=== PATIENT | female | born 1990 | race African-American/Black ===

== ENCOUNTER 2016-08-15 23:10 | Emergency (ER) | payer MEDICAID ==
[~2016-08-15 23:10] MED LIST: LORTA5 PO
[2016-08-16 00:05] LABS: BLOOD, URINE NEG (NEG); GLUCOSE,URINE NEG (NEG); KETONE, URINE NEG (NEG); MUCUS URINE FEW /lpf (OCC); NITRITE,URINE NEG (NEG); PH, URINE 6.5 (5.0-8.5); RENAL EPITHELIAL CELLS <1 /hpf; SQUAMOUS EPITHELIAL CELL URINE 4 /hpf (0-5); URINE COLOR YELLOW (YELLW/STRAW)
[2016-08-16 00:34] LABS: COMMENT (UR) CULT NOT INDICATED; CULTURE IF INDICATED CULT NOT INDICATED
--- NOTE | 2016-08-16 00:44 | PD ---
HPI Chief Complaint Complains of back pain Date Seen: Aug 16, 2016 Travel History International Travel<30 Days: No Contact w/Intl Traveler<30Days: No Known Affected Area: No History of Present Illness HPI Patient is a 26-year-old black female at 29 weeks who presents complaining of upper right back pain for 1-2 days, no bleeding or leakage of fluid or contractions noted, she sees Dr. Pérez for care. heart rate tracing is reactive and no contractions Para: 2 : 3 History Obstetric History Obstetric History 2 vaginal deliveries Social History Alcohol Use: No Tobacco Use: No Substance Abuse: No Allergies-Medications (Allergen,Severity, Reaction): Coded Allergies: No Known Allergies (Unverified , 11/14/12) Home Meds Active Scripts Hydrocodone-Acetaminophen 5-325 mg ([place] 5-325 mg)1 Tab1 Tab PO Q6H PRN (PAIN GREATER THAN 5) #20 TAB Prov:Edy Chavez MD 10/31/15 Review of Systems General / Constitutional: No: Fever, Weight Gain, Chills, Other Eyes: No: Diploplia, Blurred Vision, Visual changes, Pain, Photophobia HENT: No: Headaches, Vertigo, Lightheadedness Cardiovascular: No: Irregular Rhythm, Chest Pain or Discomfort, Palpitations, Tachycardia, Syncope, Varicosities, Edema, Cyanosis Respiratory: No: Cough, Short of Breath, Other Gastrointestinal: No: Nausea, Vomiting, Diarrhea Genitourinary: No: Decreased Urinary Output, Oliguria Musculoskeletal: No: Limited ROM, Weakness, Cramping, Edema, Pain Skin: No Rash, No Itching, No Dryness, No Lumps, No Change in Pigmentation, No Change in Nails, No Alopecia, No Lesions Neurologic: No: Weakness, Dizziness, Syncope, Focal Abnormalities, Coordination Problem, Headache, Slurred Speech, Seizures Psychiatric: No: Depression, Suicidal Ideations, Homicidal Ideation Endocrine: No: Heat Intolerance, Cold Intolerance, Polydipsia, Polyuria, Other Physical Exam Narrative GENERAL: Well-nourished, well-developed patient. SKIN: Warm and dry. HEAD: Normocephalic and atraumatic. EYES: No scleral icterus. No injection or drainage. ENT: No nasal drainage noted. Mucous membranes pink. Airway patent. NECK: Supple, trachea midline. No JVD. CARDIOVASCULAR: Regular rate and rhythm without murmurs, gallops, or rubs. RESPIRATORY: Breath sounds equal bilaterally. No accessory muscle use. BREASTS: Bilateral exam showed no masses , no retractions, no nipple discharge. ABDOMEN/GI: Abdomen soft, non-tender, bowel sounds present, no rebound, no guarding , positive right CVA tenderness Gravid to [-29] weeks size Fundal Height: [29] GENITOURINARY: External Genitalia: intact and normal in appearance BUS glands: [-] Cervix: [-] Dilatation: [-Closed] Effacement: [-] Thick Station: [-3] Membranes: [intact ] Uterine Contractions: [None-] FHT's: Category: [-1] Baseline: [133-] Reactive: [-yes] Variability: [mod-] Decels: [-none] EXTREMITIES: No cyanosis or edema. BACK: Nontender without obvious deformity + R CVA tenderness. NEUROLOGICAL: Awake and alert. Motor and sensory grossly within normal limits. Five out of 5 muscle strength in all muscle groups. Normal speech. Data Data Orders Vital Signs (Adult) .ON ADMISSION (08/15/16 23:39) ^ Labor Status (08/15/16 23:39) Urinalysis - C+S If Indicated (08/15/16 23:39) Labs Laboratory Tests Test 08/15/16 23:30 Urine Color YELLOW Urine Turbidity CLEAR Urine pH 6.5 Urine Specific [place] 1.026 Urine Protein TRACE Urine Glucose (UA) NEG Urine Ketones NEG Urine Occult Blood NEG Urine Nitrite NEG Urine Bilirubin NEG Urine Urobilinogen 2.0 Urine Leukocyte Esterase NEG Urine WBC 1 Urine Squamous Epithelial 4 Cells Urine Renal Epithelial Cells <1 Urine Mucus FEW Microscopic Urinalysis Comment CULT NOT INDICATED MDM Interpretation(s) The patient is a 26-year-old black female 29 weeks presents planning of right upper back pain for 1 day. She denies bleeding rupture the membranes or contractions. No contractions seen on the monitor and the heart rate tracing is reactive, she does have positive right CVA tenderness but her urine is negative, and she is afebrile. Pain is likely related to soft tissue strain or muscle pull, patient drove herself so really can't give her any IM narcotic Plan Plan for the patient to use Tylenol 2 tablets by mouth every 4 hours when necessary heating pad on her back or soak in a hot bath increase her fluid intake For hydration and the stay in bed 1-2 days. She is to see her OB provider for pain medication her follow-up as needed. Diagnosis Diagnosis: Primary Impression: Back pain affecting in third trimester Disposition: 01 DISCHARGE HOME Condition: Stable Patient Instructions: General Instructions, Labor (ED) Additional Instructions: RETURN FOR CONTRACTIONS, LOSS OF FLUID (WATER BREAKING), VAGINAL BLEEDING, OR DECREASED MOVEMENT DRINK 8-10 LARGE GLASSES OF WATER EVERY DAY KEEP SCHEDULED APPOINTMENT WITH YOUR PROVIDER Departure Forms: Tests/Procedures Juan Daniel Yoon II, MD Aug 16, 2016 00:44
== END 2016-08-16 01:01 | disposition home or self-care (01) ==
LOC: HOBED 23:10
DX: O26.893 Other specified pregnancy related conditions, third trimester (principal); M54.9 Dorsalgia, unspecified; Z3A.29 29 weeks gestation of pregnancy
CPT/HCPCS: 81001; 99284

== ENCOUNTER → 2016-09-01 | Outpatient (CLI) | payer MEDICAID | LOC: HPND 12:55 | PROVIDERS: ATTEND Obstetrics & Gynecology | DX: O09.33 Supervision of pregnancy with insufficient antenatal care, third trimester (principal); Z36 Encounter for antenatal screening of mother | CPT/HCPCS: 76805 ==

== ENCOUNTER → 2016-10-07 | Outpatient (CLI) | payer MEDICAID | LOC: HPND 10:10 | PROVIDERS: ATTEND Obstetrics & Gynecology | DX: O09.33 Supervision of pregnancy with insufficient antenatal care, third trimester (principal); O99.213 Obesity complicating pregnancy, third trimester; Z68.36 Body mass index [BMI] 36.0-36.9, adult; Z3A.32 32 weeks gestation of pregnancy | CPT/HCPCS: 76816 ==